=== PATIENT | male | born 1975 | race Caucasian/White ===

== ENCOUNTER 2016-11-19 15:22 | Emergency (ER) | payer OTHER ==
[2016-11-19] MEDS ORDERED: RABIES IMMUNE GLOBULIN 300 UNIT/2 ML VIAL IM ONE (15:29)
[2016-11-19] MEDS ORDERED: RABIES VACC, HUMAN DIPLOID/PF 2.5 UNIT VIAL (RABAVERT) IM ONE (15:29)
[2016-11-19 15:31] VITALS: RESP 16; TEMP 98.4; O2SAT 96
--- NOTE | 2016-11-19 15:38 | EDPHY ---
H & P Time Seen by Provider: 11/19/16 15:25 HPI/ROS: HPI Raccoon bite. 41-year-old male by private vehicle. He reports that he was cleaning off his back deck yesterday, last night and there was raccoon with 3 baby raccoons. He reports that while trying to get the raccoon off the deck he was bit in the lateral right mid leg once and he thinks he was scratched by the raccoon on the right lateral elbow. He denies any symptoms or other complaints. ROS: Constitutional: No fever, no chills. No weakness. Eyes: No discharge. No changes in vision. ENT: No sore throat. No nasal congestion or rhinorrhea. Respiratory: No cough. No shortness of breath. Cardiac: No chest pain, no palpitations. Gastrointestinal: No abdominal pain, no vomiting, no diarrhea. Genitourinary: No hematuria. No dysuria or increased frequency with urination. Musculoskeletal: No back pain. No neck pain. No myalgias or arthralgias. Skin: No rashes. As above. Neurological: No headache. No focal weakness or altered sensation. Past medical history: No significant past medical history. No previous rabies vaccination. Social history: Here by himself. Nonsmoker. Physical Exam: General Appearance: Alert, no distress. This patient is responding to questions appropriately and in full sentences. This patient appears well- hydrated and well-nourished. Eyes: Pupils equal and round no pallor or injection. No lid edema, erythema or injection. Neurological: Motor sensory function is grossly intact. Cranial nerves are normal. Gait is normal. Skin: Warm and dry, no rashes. 2-3 mm puncture wound x2 by several cm , right mid leg. He has a scratch which is superficial and linear over the lateral aspect of the right elbow. No surrounding erythema or edema. No purulent drainage from these lesions. No palpable foreign body. Extremities are neurovascularly intact. Musculoskeletal: Neck is supple and nontender. Extremities are symmetrical. All joints range without pain or impingement. Psychiatric: No agitation. No depression. Database: EKG: Imaging: Right tib-fib x-ray series: Negative for radiopaque foreign body or other abnormality. Interpreted by me. Procedures: Emergency department course: Wound areas were thoroughly cleaned. Patient given standard protocol rabies immunoglobulin and vaccine. Results of his x-rays were discussed with him. He will return for repeat vaccinations on days 3, 7 and 14. Follow-up was discussed. Infection precautions reviewed. All of his questions were answered. He was discharged home in good condition. Differential Diagnosis: The differential diagnosis on this patient includes but is not limited to raccoon bite, needs rabies prophylaxis. Soft tissue foreign body, cellulitis, abscess unlikely. This represents a partial list of diagnoses considered. These considerations are based on history, physical exam, past history, reassessment and diagnostic testing. Smoking Status: Never smoked Constitutional: Initial Vital Signs Temperature (C) 36.9 C 11/19/16 15:30 Heart Rate 75 11/19/16 15:30 Respiratory Rate 16 11/19/16 15:30 Blood Pressure 152/86 H 11/19/16 15:30 O2 Sat (%) 96 11/19/16 15:30 O2 Delivery Mode Room Air Allergies/Adverse Reactions: No Known Allergies Allergy (Verified 11/19/16 15:32) Home Medications: Medication Instructions Recorded Yelena 03/28/13 Medical Decision Making - Diagnostics Imaging Results: Imaging Impressions Tibia/Fibula X-Ray 11/19/16 15:29 Impression: Normal exam. Departure - Departure Disposition: Home, Routine, Self-Care Clinical Impression: Raccoon bite, Rabies, need for prophylactic vaccination against Condition: Good Instructions: Rabies Vaccine (ED) Additional Instructions: Read and follow provided instructions. Return to the emergency department here for repeat vaccinations on day 3, 7 and 14 as discussed. Ibuprofen dosin mg every 6 hours with meals for the next 3 days only. Take only as needed for pain. Return to the emergency department for worsening for redness or swelling around the wound edges, any drainage of pus, any streaking of redness from the wounds, fever or other serious concerns. Referrals: NONE *PRIMARY CARE P,. [Primary Care Provider] - As per Instructions
[2016-11-19 17:10] VITALS: BP 142/80; PULSE 74
== END 2016-11-19 16:50 | disposition home or self-care (01) ==
LOC: CED 15:22
PROC: 3E0234Z Introduction of Serum, Toxoid and Vaccine into Muscle, Percutaneous Approach (ICD-10-PCS; principal; 2016-11-19)
DX: S81.851A Open bite, right lower leg, initial encounter (principal); S50.311A Abrasion of right elbow, initial encounter; Z23 Encounter for immunization; W55.51XA Bitten by raccoon, initial encounter; Y99.8 Other external cause status; Y93.89 Activity, other specified
CPT/HCPCS: 73590-PO

== ENCOUNTER 2016-11-22 15:58 | Emergency (ER) | payer OTHER ==
[2016-11-22 16:06] VITALS: BP 125/79; PULSE 68; RESP 16; TEMP 98.2; O2SAT 98
[2016-11-22] MEDS ORDERED: RABIES VACC, HUMAN DIPLOID/PF 2.5 UNIT VIAL (RABAVERT) IM ONE (16:16)
--- NOTE | 2016-11-22 16:18 | EDPHY ---
H & P Stated Complaint: 2nd set of rabies vaccinations Time Seen by Provider: 11/22/16 16:11 HPI/ROS: CHIEF COMPLAINT: Rabies exposure HISTORY OF PRESENT ILLNESS: The patient is a 41-year-old man who comes to the emergency department requesting a repeat rabies vaccination. He was seen here 3 days ago after being bitten by a raccoon. He had the immunoglobulin and 1st vaccination. Today is day 3. He tried to follow up with the [facility] but cannot get in. He is asymptomatic. His wound is healing well. REVIEW OF SYSTEMS: Constitutional: denies: chills, fever, recent illness, recent injury EENTM: denies: blurred vision, double vision, nose congestion Respiratory: denies: cough, shortness of breath Cardiac: denies: chest pain, irregular heart rate, lightheadedness, palpitations Gastrointestinal/Abdominal: denies: abdominal pain, diarrhea, nausea, vomiting, blood streaked stools Genitourinary: denies: dysuria, frequency, hematuria, pain Musculoskeletal: denies: joint pain, muscle pain Skin: Bite jori to right leg Neurological: denies: headache, numbness, paresthesia, tingling, dizziness, weakness Hematologic/Lymphatic: denies: blood clots, easy bleeding, easy bruising Immunologic/allergic: denies: HIV/AIDS, transplant EXAM: GENERAL: Well-appearing, well-nourished and in no acute distress. HEAD: Atraumatic, normocephalic. EYES: Pupils equal round and reactive to light, extraocular movements intact, sclera anicteric, conjunctiva are normal. ENT: TMs normal, nares patent, oropharynx clear without exudates. Moist mucous membranes. NECK: Normal range of motion, supple without lymphadenopathy or JVD. LUNGS: Breath sounds clear to auscultation bilaterally and equal. No wheezes rales or rhonchi. HEART: Regular rate and rhythm without murmurs, rubs or gallops. ABDOMEN: Soft, nontender, normoactive bowel sounds. No guarding, no rebound. No masses appreciated. BACK: No CVA tenderness, no spinal tenderness, step-offs or deformities EXTREMITIES: Normal range of motion, no pitting or edema. No clubbing or cyanosis. NEUROLOGICAL: Cranial nerves II through XII grossly intact. Normal speech, normal gait. 5/5 strength, normal movement in all extremities, normal sensation PSYCH: Normal mood, normal affect. SKIN: Patient has bite jori to right leg. Well healing. No erythema. Source: Patient Exam Limitations: No limitations - Medical/Surgical History Hx Asthma: No Hx Chronic Respiratory Disease: No Hx Diabetes: No Hx Cardiac Disease: No Hx Renal Disease: No Hx Cirrhosis: No Hx Alcoholism: No Hx HIV/AIDS: No - Family History Significant Family History: No pertinent family hx - Social History Smoking Status: Never smoked Alcohol Use: Sober Drug Use: None Constitutional: Initial Vital Signs Temperature (C) 36.8 C 11/22/16 16:02 Heart Rate 68 11/22/16 16:02 Respiratory Rate 16 11/22/16 16:02 Blood Pressure 125/79 H 11/22/16 16:02 O2 Sat (%) 98 11/22/16 16:02 O2 Delivery Mode Room Air Allergies/Adverse Reactions: No Known Allergies Allergy (Verified 11/19/16 15:32) Home Medications: Medication Instructions Recorded Yelena 03/28/13 Medical Decision Making ED Course/Re-evaluation: The patient is here for his 2nd rabies vaccination. For days 7 and 14 he will follow up with the [facility]. Differential Diagnosis: Partial list of the Differential diagnosis considered include but were not limited to; vaccination, wound infection and although unlikely based on the history and physical exam, I also considered foreign body. - Data Points Medications Given: Discontinued Medications Rabies Vaccine Human Diploid Cell (Rabavert) 2.5 unit IM .ONCE ONE Stop: 11/22/16 16:17 Last Admin: 11/22/16 16:25 Dose: 2.5 unit Departure - Departure Disposition: Home, Routine, Self-Care Clinical Impression: Need for rabies vaccination Condition: Good Instructions: Rabies Vaccine (ED) Additional Instructions: Follow-up on day 7 and 14 with the [facility] for repeat vaccination. This would be FridayNovember 26 and FridayDecember 03. If The clinic is not open on the you may go on the or return to the emergency department. Referrals: Mirlande Stearns MD [Primary Care Provider] - As per Instructions
== END 2016-11-22 16:27 | disposition home or self-care (01) ==
LOC: CED 15:58
DX: Z23 Encounter for immunization (principal)